=== PATIENT | female | born 1940 | race Caucasian/White ===

== ENCOUNTER → 2022-11-13 11:29 | Outpatient (CLI) | payer MEDICARE, OTHER, SELFPAY ==
--- NOTE | 2022-11-13 | DI.MRI.S_ITS ---
BREAST MRI OF BOTH BREASTS: 11/13/2022 CLINICAL: Right breast cancer. TECHNIQUE: The patient was placed prone in a dedicated breast imaging coil. Precontrast axial STIR and 3D FLASH without fat saturation sequences were obtained. Both before and after bolus injection of contrast, sequential 1-minute axial 3D FLASH with fat saturation sequences for 3 time points, with subtraction images and maximum intensity projections (MIP's) generated. Delayed sagittal FLASH images with fat saturation were also obtained. Computer-aided detection, including computer algorithm analysis of MRI image data for lesion detection and characterization, pharmacokinetic analysis, with further physician review for interpretation, was performed. Comparison is made to exams dated: 10/27/2022 stereotactic biopsy, 10/14/2022 ultrasound, 10/14/2022 mammogram, and 08/31/2022 mammogram - [facility]. Additional mammograms dated 09/19/2018 and 11/25/2017. Image quality: Excellent. There is mild background parenchymal enhancement. There is heterogeneously dense fibroglandular tissue in the bilateral breast. Right breast: There is clumped non-mass enhancement noted in the 9 o'clock axis, middle depth of the right breast correlating with area of suspicious calcifications seen on comparison mammogram. This area of non-mass enhancement measures approximately 2.6 cm in AP dimension (image 59/series 15), 2.9 cm in craniocaudal dimension (image 58/series 15), and approximately 1.5 cm in transverse dimension (image 60/series 11). There is mixed delayed phase enhancement kinetics. Findings are compatible with biopsy-proven malignancy. A more linear focus of enhancement is noted to be vertically oriented within the superior aspect of non-mass enhancement which is likely secondary to the biopsy tract. The biopsy marker is noted inferior to this linear enhancement as noted by susceptibility artifact. There are also linear hyperintensities likely within ducts in the right subareolar region which demonstrate T1 hyperintensity on precontrast images. Similar to the left breast, these likely represent proteinaceous or hemorrhagic products. No definite ductal enhancement. There is a 0.6 cm oval, somewhat reniform mass in the upper outer quadrant of the right breast approximately 8 cm from the nipple demonstrating delayed phase progressive enhancement kinetics. It is moderately hyperintense on T2 sequences. This finding likely represents a fibroadenoma or a lymph node. It correlates with a stable oval mass seen on comparison mammograms dating back to 2018. Otherwise, no skin or nipple abnormality seen. No axillary or internal mammary chain adenopathy. Left breast: No suspicious mass, non-mass enhancement, or architectural distortion. No skin or nipple abnormalities. No axillary or internal mammary chain adenopathy. There is linear hyperintensity in the subareolar region of the left nipple on precontrast T1 weighted images. This is compatible with proteinaceous or hemorrhagic components. Miscellaneous: There is abnormal enhancement involving the anterolateral right chest wall measuring approximately 2.0 x 1.1 cm in axial cross-sectional dimension (image 40/series 12) and approximately 2.4 cm in craniocaudal dimension (image 49/series 15). This may represent a chest wall lesion versus reactive changes of a healing rib fracture. Otherwise, visualized portions of the upper abdomen and chest appear unremarkable. IMPRESSION: INCOMPLETE: NEEDS ADDITIONAL IMAGING EVALUATION 1. Clumped non-mass enhancement in the lateral aspect of the right breast middle depth at the 9 o'clock position encompassing a region measuring approximately 2.6 x 2.9 x 1.5 cm. This correlates with biopsy-proven malignancy of suspicious calcifications seen on comparison mammograms. No adenopathy identified. 2. There is a 2.4 x 2.0 x 1.1 cm area of focal enhancement involving the anterolateral right chest wall which may represent a chest wall lesion versus reactive changes of a healing rib fracture. Recommend further characterization with contrast enhanced chest CT. 3. An oval 0.6 cm mass in the upper outer quadrant right breast with imaging characteristics of a fibroadenoma or lymph node. This correlates with a stable oval mass seen on comparison mammograms dating back to 2018 and is benign. 4. Proteinaceous/hemorrhagic material noted in the subareolar ducts of the bilateral breasts. COMMENT: The imaging literature indicates that a negative contrast breast MRI examination has a high sensitivity and a moderate specificity for detecting and excluding invasive carcinomas to a detection threshold of 3-5 mm; nonetheless, appropriate clinical and mammographic follow-up are recommended. MRI is not sensitive for detecting DCIS (ductal carcinoma in situ) and may not detect large invasive neoplasms that show only minimal enhancement such as mucinous carcinoma. If there are suspicious calcifications or clinically worrisome palpable masses, then biopsy should still be considered. Invasive neoplasms can be hidden by co-existent and benign enhancement caused by mastitis, hormone therapy effects, radiation therapy, , and recent biopsy or surgery. False positive examinations can occur in a number of circumstances, including breasts that have recently been subject to invasive procedures and those that contain atypical ductal hyperplasia, hormonally stimulated glandular tissue, fat necrosis, or radial scars. This exam was interpreted at Station ID: [id number]. Electronically Signed By: Dat Lambert M.D. aty/:11/13/2022 23:37:48 ACR BI-RADS Category 0: Incomplete [id number]
== END ==
PROVIDERS: Family Provider Family Medicine; PCP Physician Assistant; Referring Provider Physician Assistant; Visit Provider Physician Assistant
DX: D05.11 Intraductal carcinoma in situ of right breast (principal); N63.11 Unspecified lump in the right breast, upper outer quadrant
CPT/HCPCS: 77049; A9579